=== PATIENT | female | born 1990 | race Caucasian/White ===

== ENCOUNTER 2020-12-07 00:20 | Emergency (ER) | payer SELFPAY ==
[~2020-12-07] VITALS: Ht 160 cm; Wt 64.0 kg
[2020-12-07 01:30] VITALS: BP 147/90
== END 2020-12-07 01:30 | disposition home or self-care (01) ==
LOC: ER 00:20
DX: T51.0X1A Toxic effect of ethanol, accidental (unintentional), initial encounter (principal); F10.129 Alcohol abuse with intoxication, unspecified; R41.82 Altered mental status, unspecified; Y90.9 Presence of alcohol in blood, level not specified; Y92.018 Other place in single-family (private) house as the place of occurrence of the external cause
CPT/HCPCS: 99283